=== PATIENT | female | born 1945 | race Caucasian/White ===

== ENCOUNTER → 2016-10-27 | Outpatient (CLI) | payer OTHER ==
[2016-10-27 13:42] LABS: BLOOD UREA NITROGEN 21 mg/dl (7-18); BUN/CREATININE RATIO 17.3 (10-20); CARBON DIOXIDE 28 mmol/L (21-32); CHLORIDE 105 mmol/L (98-107); GLUCOSE 95 mg/dl (70-99); SODIUM 142 mmol/L (136-145)
[2016-10-27 13:49] LABS: CALCIUM 9.7 mg/dl (8.5-10.1)
== END | disposition home or self-care (01) ==
LOC: C.LABMFLN 08:49
PROVIDERS: ATTEND Family Medicine
DX: I10 Essential (primary) hypertension (principal); D64.9 Anemia, unspecified; E55.9 Vitamin D deficiency, unspecified

== ENCOUNTER → 2017-06-17 | Outpatient (CLI) | payer OTHER ==
[2017-06-17 18:10] LABS: BASO % 0.3 %; BASO ABS # 0.02 K/uL (0-0.2); COMPLETE YES; EOS % 1.7 %; IG% 0.5 %; LYMPH % 19.9 %; LYMPH ABS # 1.32 K/uL (1.2-3.4); MEAN CELL VOLUME 87.6 fL (80-100); MEAN CORPUSCULAR HEMOGLOBIN 29.7 pg (25-34); MEAN CORPUSCULAR HGB CONC 33.9 g/dl (32-36); MEAN PLATELET VOLUME 9.4 fL (7.4-10.4); MONO % 8.5 %; NEUT % 69.1 %; PLATELET COUNT 220 K/uL (130-400); RED BLOOD COUNT 4.11 M/uL (4.2-5.4); WHITE BLOOD COUNT 6.62 K/uL (4.8-10.8)
[2017-06-17 18:23] LABS: BLOOD UREA NITROGEN 26 mg/dl (7-18); CREATININE 1.77 mg/dl (0.60-1.20); GLUCOSE 138 mg/dl (70-99)
[2017-06-17 18:24] LABS: ALT/SGPT 25 U/L (12-78); AST/SGOT 19 U/L (15-37); BUN/CREATININE RATIO 14.9 (10-20); CALCIUM 9.2 mg/dl (8.5-10.1); CARBON DIOXIDE 29 mmol/L (21-32); CHLORIDE 103 mmol/L (98-107); POTASSIUM 3.8 mmol/L (3.5-5.1); SODIUM 140 mmol/L (136-145)
[2017-06-17 18:34] LABS: ALB/GLOB RATIO 1.1 (0.9-2); ALKALINE PHOSPHATASE 84 U/L (45-117)
== END | disposition home or self-care (01) ==
LOC: C.LABMFLN 14:33
PROVIDERS: ATTEND Family Medicine
DX: R10.32 Left lower quadrant pain (principal); K59.09 Other constipation

== ENCOUNTER → 2017-07-20 | Outpatient (CLI) | payer OTHER ==
[2017-07-20 14:09] LABS: BLOOD UREA NITROGEN 17 mg/dl (7-18); BUN/CREATININE RATIO 16.8 (10-20); CALCIUM 9.6 mg/dl (8.5-10.1); CARBON DIOXIDE 27 mmol/L (21-32); CHLORIDE 103 mmol/L (98-107); GLUCOSE 92 mg/dl (70-99); SODIUM 139 mmol/L (136-145)
== END | disposition home or self-care (01) ==
LOC: C.LABMFLN 08:30
PROVIDERS: ATTEND Family Medicine
DX: N18.3 Chronic kidney disease, stage 3 (moderate) (principal)

== ENCOUNTER → 2017-10-30 | Outpatient (CLI) | payer OTHER ==
[2017-10-30 12:38] LABS: BASO % 0.7 %; BASO ABS # 0.03 K/uL (0-0.2); EOS % 2.9 %; EOS ABS # 0.13 K/uL (0-0.5); HEMOGLOBIN 12.6 g/dL (12.0-16.0); LYMPH % 34.2 %; LYMPH ABS # 1.56 K/uL (1.2-3.4); MEAN CELL VOLUME 87.9 fL (80-100); MEAN CORPUSCULAR HEMOGLOBIN 29.9 pg (25-34); MEAN CORPUSCULAR HGB CONC 34.1 g/dl (32-36); MEAN PLATELET VOLUME 9.7 fL (7.4-10.4); MONO % 9.2 %; MONO ABS # 0.42 K/uL (0.11-0.59); NEUT ABS # 2.42 K/uL (1.4-6.5); PLATELET COUNT 203 K/uL (130-400); RED CELL DISTRIBUTION WIDTH CV 12.7 % (11.5-14.5); RED CELL DISTRIBUTION WIDTH SD 40.5 fL (36.4-46.3); WHITE BLOOD COUNT 4.56 K/uL (4.8-10.8)
[2017-10-30 13:33] LABS: ALT/SGPT 22 U/L (12-78); BLOOD UREA NITROGEN 24 mg/dl (7-18); CALCIUM 9.8 mg/dl (8.5-10.1); CARBON DIOXIDE 30 mmol/L (21-32); CHOLESTEROL 295 mg/dl (0-200); GLUCOSE 88 mg/dl (70-99); POTASSIUM 3.7 mmol/L (3.5-5.1); SODIUM 138 mmol/L (136-145)
[2017-10-30 13:36] LABS: LDL CHOLESTEROL (DIRECT) 200 mg/dl
== END | disposition home or self-care (01) ==
LOC: C.LABMFLN 07:56
PROVIDERS: ATTEND Family Medicine
DX: Z13.820 Encounter for screening for osteoporosis (principal); I10 Essential (primary) hypertension; E55.9 Vitamin D deficiency, unspecified; E78.00 Pure hypercholesterolemia, unspecified; D64.9 Anemia, unspecified

== ENCOUNTER → 2017-11-16 | Day surgery (SDC) | payer OTHER ==
[2017-11-13 07:45] VITALS: Ht 157.5 cm; Wt 84.1 kg
[~2017-11-16] VITALS: Ht 157.5 cm; Wt 84.1 kg
[~2017-11-16] MED LIST: AMLO-114 PO; CALC600T37 PO; CHOL200010 PO; COEN1CAP7 PO; CYCL5TAB PO; DOXY50CA26 PO; ENAL1TAB31 PO; IPRA1AER2 INH; LIDOCAINE HCL 2% 2 ML VIAL (20MG/ML) ONE; MAGN250T9 PO; PRLSR20 PO; PROPOFOL IV EMULSION 10 MG/ML 20 ML VIAL IV ONE; VITBC PO; ZINC50TA3 PO; [UNRECOGNIZED DRUG - CODE] PO
--- NOTE | 2017-11-16 14:24 | Endo History and Physical ---
History & Physical Date of Service: Nov 16, 2017. Chief Complaint: Barretts, Anemia Referring Physician: Dr. Willams History of Present Illness For EGD Past Surgical History Hx Cardiac Surgery: No Hx Internal Defibrillator: No Hx Pacemaker: No Hx Abdominal Surgery: Yes (APPENDECTOMY, BILATERAL TUBAL LIGATION, LAP CHOLEY) Hx of Implantable Prosthesis: No Hx Post-Op Nausea and Vomiting: No Hx Cancer Surgery: No Hx Thoracic Surgery: No Hx Orthopedic: No Hx Urinary Tract Surgery: No Family History Colon CA, Esophogeal CA, IBD Social History Smoking Status: Former Smoker Hx Substance Use: No Hx Alcohol Use: No Allergies Coded Allergies: Chlorthalidone (Verified Allergy, Severe, STOMACH PAINS, 11/16/17) Flu Virus Vaccine (Verified Allergy, Severe, RASH, SWELLING, 11/16/17) Cyclosporine (Verified Adverse Reaction, Severe, THRUSH, FUNGUS OF ESOPHAGUS, 11/16/17) Morphine (Verified Adverse Reaction, Unknown, VOMITING, 11/16/17) Current Medications Reported Home Medications Medications Dose Route/Sig Max Daily Dose Days Date Category Dose Instructions Combivent Respimat (Ipratropium-Albuterol) 1 Aer Aer 1 Puffs INH QID PRN 11/13/17 Reported Se-100 (Selenium) 100 Mcg Cap 100 Mcg PO HS 11/13/17 Reported Zinc 50 Mg Tab 50 Mg PO QAM 11/13/17 Reported Flexeril (Cyclobenzaprine Hcl) 5 Mg Tab 5 Mg PO HS PRN 11/13/17 Reported PRN Vitamin B Complex 1 Tab Tab 1 Tab PO HS 11/13/17 Reported Coq10 (Coenzyme Q10 (Ubidecarenone)) 200 Mg Cap 200 Mg PO QAM 11/13/17 Reported Magnesium 250 Mg Tab 250 Mg PO HS 11/13/17 Reported Vitamin D (Cholecalciferol) 2,000 Unit Cap 2,000 Units PO BID 11/13/17 Reported Calcium 600 Mg Tab 600 Mg PO QAM 11/13/17 Reported Norvasc (Amlodipine Besylate) 10 Mg Tab 10 Mg PO QPM 11/13/17 Reported Prilosec (Omeprazole) 20 Mg Capcr 20 Mg PO QAM 11/13/17 Reported Vasotec (Enalapril Maleate) 20 Mg Tab 20 Mg PO BID 11/13/17 Reported Doxycycline (Doxycycline (Monohydrate)) 50 Mg Cap 50 Mg PO 3XWK 11/13/17 Reported Vital Signs Weight (Kilograms): 84.09 Height (Feet): 5 Height (Inches): 2 Date Time Temp Pulse Resp B/P (MAP) Pulse Ox O2 Delivery O2 Flow Rate FiO2 11/16/17 13:55 36.5 85 20 164/72 (102) 97 Room Air Physical Exam General Appearance: WD/WN Respiratory/Chest: Respiratory effort: no dyspnea Cardiovascular: Heart Auscultation: RRR Abdomen: Inspection & Palpation: soft Assessment and Plan Dysphagia, anemia for EGD
--- NOTE | 2017-11-16 14:45 | Discharge Instructions ---
Endoscopy Patient Instructions Date / Procedure(s) Performed Nov 16, 2017. EGD Allergy Information Coded Allergies: Chlorthalidone (Verified Allergy, Severe, STOMACH PAINS, 11/16/17) Flu Virus Vaccine (Verified Allergy, Severe, RASH, SWELLING, 11/16/17) Cyclosporine (Verified Adverse Reaction, Severe, THRUSH, FUNGUS OF ESOPHAGUS, 11/16/17) Morphine (Verified Adverse Reaction, Unknown, VOMITING, 11/16/17) Discharge Date / Findings Nov 16, 2017. Velarde's biopsied Medication Instructions Restart Stopped Medication(s): resume meds Reported Home Medications Medications Dose Route/Sig Max Daily Dose Days Date Category Dose Instructions Combivent Respimat (Ipratropium-Albuterol) 1 Aer Aer 1 Puffs INH QID PRN 11/13/17 Reported Se-100 (Selenium) 100 Mcg Cap 100 Mcg PO HS 11/13/17 Reported Zinc 50 Mg Tab 50 Mg PO QAM 11/13/17 Reported Flexeril (Cyclobenzaprine Hcl) 5 Mg Tab 5 Mg PO HS PRN 11/13/17 Reported PRN Vitamin B Complex 1 Tab Tab 1 Tab PO HS 11/13/17 Reported Coq10 (Coenzyme Q10 (Ubidecarenone)) 200 Mg Cap 200 Mg PO QAM 11/13/17 Reported Magnesium 250 Mg Tab 250 Mg PO HS 11/13/17 Reported Vitamin D (Cholecalciferol) 2,000 Unit Cap 2,000 Units PO BID 11/13/17 Reported Calcium 600 Mg Tab 600 Mg PO QAM 11/13/17 Reported Norvasc (Amlodipine Besylate) 10 Mg Tab 10 Mg PO QPM 11/13/17 Reported Prilosec (Omeprazole) 20 Mg Capcr 20 Mg PO QAM 11/13/17 Reported Vasotec (Enalapril Maleate) 20 Mg Tab 20 Mg PO BID 11/13/17 Reported Doxycycline (Doxycycline (Monohydrate)) 50 Mg Cap 50 Mg PO 3XWK 11/13/17 Reported Provider Instructions Activity Restrictions - No exercising or heavy lifting for 24 hours. - Do not drink alcohol the day of the procedure. - Do not drive a car or operate machinery until the day after the procedure. - Do not make any important decisions or sign important papers in 24 hours after the procedure. Following Day: - Return to full activity which may include returning to work/school. Diet Start your diet with liquids and light foods (jello, soup, juice, toast). Then eat your usual diet if not nauseated. Treatment For Common After Affects For mild abdominal pain, bloating, or excessive gas: - Rest - Eat lightly - Lie on right side Follow-Up Information Follow-up with Dr. Willams as scheduled Anesthesia Information What You Should Know You have had a procedure that required some medicine to reduce anxiety and discomfort. This treatment is called moderate sedation. After receiving the treatment, you may be sleepy, but you will be able to breathe on your own. The effects of the treatment may last for several hours. Follow these instructions along with Activity/Diet recommendations noted above: * Do NOT do anything where dizziness or clumsiness would be dangerous. * Rest quietly at home today, then you can be up and about tomorrow. * Have a responsible person stay with you the rest of today. * You may have had an I.V. today. If so, you may take the dressing off later today. Recommendations Call your doctor if: * Trouble breathing * Continuous vomiting for more than 24 hours * Temperature above 101 degrees * Severe abdominal pain or bloating * Pain not relieved by pain medicine ordered * There is increased drainage or redness from any incision * A large amount of rectal bleeding greater than 2-3 tablespoons. (If you had a polyp/s removed or have hemorrhoids, a small amount of blood - from the rectum is to be expected.) * You have any unanswered questions or concerns. IN THE EVENT OF A SERIOUS EMERGENCY, GO TO THE NEAREST EMERGENCY ROOM Your discharge instructions were prepared by provider Jostin Garcia. Patient Instructions Signature Page Jacylois Holbrook Patient (or Guardian) Signature/Date: I have read and understand the instructions given to me by my caregivers. Caregiver/RN/Doctor Signature/Date: The above-named patient and/or guardian has received patient instructions on this date. + Original Patient Signature Page (only) stays with chart. Please make copy for patient.
--- NOTE | 2017-11-16 14:50 | GI REPORT ---
Procedure Date: 11/16/2017 2:35 PM Procedure: Upper GI endoscopy Indications: Iron deficiency anemia, Follow-up of Velarde's esophagus Medicines: Propofol total dose 140 mg IV, Lidocaine 80 mg IV Complications: No immediate complications. Estimated Blood Loss: Estimated blood loss was minimal. Procedure: Pre-Anesthesia Assessment: - Prior to the procedure, a History and Physical was performed, and patient medications, allergies and sensitivities were reviewed. The patient's tolerance of previous anesthesia was reviewed. - The risks and benefits of the procedure and the sedation options and risks were discussed with the patient. All questions were answered and informed consent was obtained. After obtaining informed consent, the endoscope was passed under direct vision. Throughout the procedure, the patient's blood pressure, pulse, and oxygen saturations were monitored continuously. The scope was introduced through the mouth, and advanced to the second part of duodenum. The upper GI endoscopy was accomplished without difficulty. The patient tolerated the procedure well. Findings: The Z-line was irregular and was found 39 cm from the incisors. 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 Mucosa was biopsied with a cold forceps for histology. Estimated blood loss was minimal. The entire examined stomach was normal. The second portion of the duodenum was normal. Estimated blood loss was minimal. Impression: - Z-line irregular, 39 cm from the incisors. 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 Biopsied. - Normal stomach. - Normal second portion of the duodenum. Recommendation: - Discharge patient to home (ambulatory). - Continue present medications. - Await pathology results. - Return to primary care physician PRN. Jostin Garcia M.D. Jostin Garcia MD 11/16/2017 2:49:55 PM This report has been signed electronically. Note Initiated On: 11/16/2017 2:35 PM I attest to the content of the Intraoperative Record and orders documented therein, exceptions below
--- NOTE | 2017-11-16 15:06 | Anesthesiology Progress Note ---
Anesthesia Post Op Note Date & Time Nov 16, 2017 at 15:06 Vital Signs Pain Intensity: 0 Vital Signs Past 12 Hours Date Time Temp Pulse Resp B/P (MAP) Pulse Ox O2 Delivery O2 Flow Rate FiO2 11/16/17 15:02 95 16 174/84 (114) 99 Room Air 11/16/17 14:47 85 16 139/75 (96) 96 Room Air 11/16/17 13:55 36.5 85 20 164/72 (102) 97 Room Air Notes Mental Status: alert / awake / arousable, participated in evaluation Pt Amnestic to Procedure: Yes Nausea / Vomiting: adequately controlled Pain: adequately controlled Airway Patency, RR, SpO2: stable & adequate BP & HR: stable & adequate Hydration State: stable & adequate Anesthetic Complications: no major complications apparent
[2017-11-16 15:17] VITALS: BP 172/74; PULSE 83; O2SAT 99
== END | disposition home or self-care (01) ==
LOC: C.GI 12:44
PROVIDERS: ATTEND Internal Medicine Gastroenterology
DX: D50.9 Iron deficiency anemia, unspecified (principal); R13.10 Dysphagia, unspecified; K22.70 Barrett's esophagus without dysplasia; Z87.891 Personal history of nicotine dependence; Z80.0 Family history of malignant neoplasm of digestive organs; Z88.8 Allergy status to other drugs, medicaments and biological substances; Z88.5 Allergy status to narcotic agent; Z79.899 Other long term (current) drug therapy